=== PATIENT | female | born 1980 | race Caucasian/White ===

== ENCOUNTER 2019-05-08 08:43 | Outpatient (CLI) | payer OTHER ==
--- NOTE | 2019-05-08 10:26 | ULT ---
ULTRASOUND ABDOMEN LIMITED: (RIGHT UPPER QUADRANT) 05/08/2019 HISTORY: A 39-year-old female with right upper quadrant pain. FINDINGS: Gallbladder: Surgically absent. Common duct: 5 mm Liver: Normal. Pancreas: Normal. Right kidney: Normal. IMPRESSION: 1. Status post cholecystectomy. 2. Otherwise normal. JN R POS: TPC
== END 2019-05-08 08:44 | disposition home or self-care (01) ==
LOC: BICULT 08:43
PROVIDERS: ATTEND Family Medicine
DX: R10.11 Right upper quadrant pain (principal); Z90.49 Acquired absence of other specified parts of digestive tract
CPT/HCPCS: 76705

== ENCOUNTER 2022-04-01 13:33 | Outpatient (CLI) | payer OTHER | END 2022-04-01 13:34 | disposition home or self-care (01) | LOC: BICULT 13:33 | PROVIDERS: ATTEND Family Medicine | DX: M79.661 Pain in right lower leg (principal); R60.0 Localized edema; I70.8 Atherosclerosis of other arteries | CPT/HCPCS: 93923 ==

== ENCOUNTER 2022-07-13 09:09 | Outpatient (CLI) | payer OTHER ==
[2022-07-13] MEDS ORDERED: Iopamidol 370 76% 100 ML VIAL ONE (09:56)
== END 2022-07-13 09:10 | disposition home or self-care (01) ==
LOC: CT 09:09
PROVIDERS: ATTEND Family Medicine
DX: R52 Pain, unspecified (principal); R60.9 Edema, unspecified
CPT/HCPCS: 75635; Q9967